=== PATIENT | female | born 1970 | race Two or more races ===

== ENCOUNTER 2020-08-10 10:23 | Inpatient (IN) | payer OTHER ==
[~2020-08-10] VITALS: Ht 162.6 cm; Wt 5.0 kg
== END 2020-08-13 11:20 | disposition home or self-care (01) | DRG 340 ==
LOC: ER 10:23 → SEC-K 12:09 → SURH 12:09 → O/R 12:09 → SURH 17:17
PROVIDERS: ADMIT Surgery; ATTEND Surgery
PROC: 0W9J4ZZ Drainage of Pelvic Cavity, Percutaneous Endoscopic Approach (ICD-10-PCS; 2020-08-10)
PROC: 3E1M38Z Irrigation of Peritoneal Cavity using Irrigating Substance, Percutaneous Approach (ICD-10-PCS; 2020-08-10)
PROC: 0DTJ4ZZ Resection of Appendix, Percutaneous Endoscopic Approach (ICD-10-PCS; principal; 2020-08-10 13:00)
PROC: 02HV33Z Insertion of Infusion Device into Superior Vena Cava, Percutaneous Approach (ICD-10-PCS; 2020-08-12)
DX: K35.33 Acute appendicitis with perforation, localized peritonitis, and gangrene, with abscess (principal); Z20.828 Contact with and (suspected) exposure to other viral communicable diseases; E03.9 Hypothyroidism, unspecified; D64.9 Anemia, unspecified; F41.8 Other specified anxiety disorders

== ENCOUNTER 2020-08-10 11:40 | Outpatient (CLI) | payer OTHER | END 2020-08-10 15:50 | disposition home or self-care (01) | LOC: TOM 11:40 | PROVIDERS: ATTEND Obstetrics & Gynecology Maternal & Fetal Medicine | DX: K42.9 Umbilical hernia without obstruction or gangrene (principal); K35.890 Other acute appendicitis without perforation or gangrene; D25.9 Leiomyoma of uterus, unspecified ==